=== PATIENT | male | born 1950 | race Caucasian/White ===

== ENCOUNTER 2016-10-19 08:30 | Day surgery (SDC) | payer MEDICARE, MEDICAID ==
[2016-04-02 09:32] VITALS: BMI 28.8
[2016-10-19] MEDS ORDERED: Propofol 10 mg/ml Inj (20 ML) ONE (11:06)
[2016-10-19] MEDS ORDERED: Midazolam 2 MG/2 ML VIAL ONE (11:06)
[2016-10-19] MEDS ORDERED: Lactated Ringer's 1,000 ML IV ONE (11:10)
[2016-10-19] MEDS ORDERED: Bupivacaine HCl 0.5% PF (10 ml) Inj ONE (11:15)
[2016-10-19] MEDS ORDERED: ceFAZolin IV 1 gm in Dextrose 50 ML IVPB ONE (11:15)
[2016-10-19] MEDS ORDERED: Bupivacaine HCl 0.25% PF (10 ml) Inj ONE ×2 (11:16→11:24)
[2016-10-19] MEDS ORDERED: Lidocaine 1% Inj (20ml) ONE (11:24)
[2016-10-19] MEDS ORDERED: Oxycodone/Acetaminophen 5/325 mg Tab PO PRN (11:46)
[2016-10-19] MEDS ORDERED: HYDROmorphone 0.5 mg/0.5 ml ISec IVP PRN (11:51)
[2016-10-19 12:49] VITALS: RESP 16; TEMP 97.7
[2016-10-19 13:11] VITALS: BP 160/78; PULSE 66; O2SAT 100
--- NOTE | 2016-10-19 13:51 | OP ---
PROCEDURE DATE: 10/19/2016 PREOPERATIVE DIAGNOSIS: Mass of the right knee. POSTOPERATIVE DIAGNOSIS: Mass of the right knee. PROCEDURE PERFORMED: Wide and deep excision mass of the right knee with adjacent tissue transfer beatriz sure. SURGEON: Ramírez Reyes MD ANESTHESIA: General. ESTIMATED BLOOD LOSS: 30 mL. POSTOPERATIVE CONDITION: Stable. PROCEDURE: The patient taken to the operating room, placed in the left lateral decubitus position. The posterior right knee was prepped and draped. Local anesthesia was administered. A generous shayna ptical incision was made surrounding the mass. It was dissected free into the fascial layer and destinee teresa. Bleeding was controlled using the Bovie. A larger blood vessel was repaired. The wound was ir rigated with copious amounts of saline solution and generous tissue flaps were raised using the Bovie . An adjacent tissue transfer closure of greater than 30 square cm was performed using multiple laye rs of Monocryl, subcuticular Monocryl, and skin clips. The patient tolerated procedure well, returne d to recovery room in stable condition. Ramírez Reyes MD cc: [id number] TT: 10/19/2016 13:50:21 en
== END 2016-10-19 13:08 | disposition home or self-care (01) ==
LOC: C.SDS 08:30
PROVIDERS: ATTEND Surgery
DX: R22.42 Localized swelling, mass and lump, left lower limb (principal)
CPT/HCPCS: 14301; 82948; 88307; J0690; J2250; J2704; J3010; J7120